=== PATIENT | male | born 1955 | race Two or more races ===

== ENCOUNTER 2021-11-07 17:03 | Inpatient (IN) | payer OTHER ==
[~2021-11-07] VITALS: Ht 175.3 cm; Wt 63.5 kg
[2021-11-11] MEDS ORDERED: CLOPIDOGREL BIS75 MG (08:06)
[2021-11-11] MEDS ORDERED: PANTOPRAZOLE SO40 MG (08:06)
[2021-11-11] MEDS ORDERED: ST. JOSEPH ASPI81 M2 (08:06)
[2021-11-11] MEDS ORDERED: ATORVASTATIN CA40 MG (08:06)
[2021-11-11] MEDS ORDERED: LOSARTAN POTASS50 MG (08:07)
[2021-11-11] MEDS ORDERED: GABAPENTIN400 MG (08:07)
[2021-11-11] MEDS ORDERED: FUROSEMIDE40 MG (08:07)
[2021-11-11] MEDS ORDERED: AMLODIPINE BESY10 MG (08:07)
[2021-11-11] MEDS ORDERED: PHOSLO667 M1 (08:07)
[2021-11-11] MEDS ORDERED: CILOSTAZOL50 MG (08:07)
[2021-11-11] MEDS ORDERED: TAMSULOSIN HCL0.4 MG (08:07)
[2021-11-11] MEDS ORDERED: ISOSORBIDE MONO30 M2 (08:07)
[2021-11-11] MEDS ORDERED: APRESOLINE 10MG10 MG (08:08)
[2021-11-11] MEDS ORDERED: SIMVASTATIN40 MG (08:08)
== END 2021-11-12 19:38 | disposition home or self-care (01) | DRG 592 ==
LOC: ER 17:03 → MEDI 11-08 02:48
PROVIDERS: ADMIT Internal Medicine; ATTEND Internal Medicine
PROC: 0HDMXZZ Extraction of Right Foot Skin, External Approach (ICD-10-PCS; 2021-11-10)
PROC: 5A1D70Z Performance of Urinary Filtration, Intermittent, Less than 6 Hours Per Day (ICD-10-PCS; 2021-11-10)
PROC: 0HDMXZZ Extraction of Right Foot Skin, External Approach (ICD-10-PCS; principal; 2021-11-12)
DX: L97.519 Non-pressure chronic ulcer of other part of right foot with unspecified severity (principal); N18.6 End stage renal disease; I70.261 Atherosclerosis of native arteries of extremities with gangrene, right leg; Z99.2 Dependence on renal dialysis; I73.89 Other specified peripheral vascular diseases; Z20.822 Contact with and (suspected) exposure to COVID-19